=== PATIENT | female | born 1960 ===

== ENCOUNTER 2018-03-22 10:02 | Day surgery (SDC) | payer BC ==
[~2018-03-22 10:02] MED LIST: Buffered Lidocaine 0.9% SYRIN* 5 ML/SYR SYRINGE INTRADERM ONE
[2018-03-22] MEDS ORDERED: fentaNYL* 50 MCG/ML 2 ML VIAL (100 MCG VIAL) ONE ×3 (13:15→14:04)
[2018-03-22] MEDS ORDERED: Midazolam* 1 MG/ML 2 ML VIAL (2 MG) ONE (13:15)
[2018-03-22] MEDS ORDERED: Lidocaine 2% PF * 5 ML VIAL ONE (13:17)
[2018-03-22] MEDS ORDERED: Succinylcholine* 20 MG/ML 10 ML VIAL ONE (13:34)
[2018-03-22] MEDS ORDERED: Dexamethasone IV* 4 MG/ML 1 ML (4 MG) ONE (13:34)
[2018-03-22] MEDS ORDERED: Ondansetron INJ* 2 MG/ML VIAL ONE (13:34)
[2018-03-22] MEDS ORDERED: oxyCODONE/Acetamin 5/325 MG* TAB PO PRN (14:00)
[2018-03-22] MEDS ORDERED: Acetaminophen TAB* 325 MG PO PRN (14:00)
[2018-03-22] MEDS ORDERED: Naloxone* 0.4 MG/ML 1 ML VIAL IV PRN (14:00)
[2018-03-22] MEDS ORDERED: Ondansetron INJ* 2 MG/ML VIAL IV PRN (14:00)
[2018-03-22] MEDS ORDERED: DiMENhydriNATE IV* 50 MG/ML VIAL IV PUSH PRN (14:00)
[2018-03-22] MEDS ORDERED: Labetalol IV* 5 MG/ML 20 ML VIAL IV PUSH ONE (14:01)
[2018-03-22] MEDS ORDERED: hydrALAZINE IV* 20 MG/ML VIAL IV SLOW PU ONE (14:01)
[2018-03-22] MEDS ORDERED: Labetalol IV* 5 MG/ML 20 ML VIAL ONE (14:04)
[2018-03-22] MEDS: fentaNYL* 50 MCG/ML 2 ML VIAL (100 MCG VIAL) IV PRN ×4 (14:06→14:41)
[2018-03-22] MEDS ORDERED: DiMENhydriNATE IV* 50 MG/ML VIAL ONE (14:09)
[2018-03-22] MEDS ORDERED: oxyCODONE ORAL.SOLN* 5 MG/5 ML UDC ONE (14:35)
[2018-03-22] MEDS ORDERED: hydrALAZINE IV* 20 MG/ML VIAL ONE (14:36)
[2018-03-22] MEDS ORDERED: Acetaminophen ADULT LIQ* 650 MG/20.3 ML UDC ONE (15:15)
[2018-03-22 15:43] VITALS: BP 140/93
--- NOTE | 2018-03-23 03:11 | OP ---
DATE OF OPERATION: 03/22/18 - [facility] DATE OF : 60 SURGEON: Rafael Law M.D. PRE-OP DIAGNOSIS: Chronic tonsillitis. POST-OP DIAGNOSIS: Chronic tonsillitis. OPERATIVE PROCEDURE: Tonsillectomy. BRIEF HISTORY: This is a 57-year-old female with chronic tonsillitis with frequent tonsil stones elected for surgical management. DESCRIPTION OF PROCEDURE: The patient was taken to the operating room. General anesthesia was given. The patient was intubated. Tongue, mandible, and soft palate were retracted. Coblator was used to remove tonsils on both sides. Once hemostasis was obtained, the patient was awakened and sent to recovery room in stable condition. Instrument and sponge count correct. Blood loss minimal. [id number]/[facility] #: [id number] MTDD
== END 2018-03-22 16:13 | disposition home or self-care (01) ==
LOC: OR 10:02
PROVIDERS: ATTEND Otolaryngology
DX: J35.01 Chronic tonsillitis (principal); I10 Essential (primary) hypertension
CPT/HCPCS: 88304; A9270-GY; J0330; J0360; J1100; J1240; J2250; J2405; J3010

== ENCOUNTER → 2019-07-18 07:02 | Day surgery (SDC) | payer BC ==
--- NOTE | 2019-07-17 09:51 | HP ---
PREOPERATIVE HISTORY AND PHYSICAL: DATE OF ADMISSION/SURGERY: 07/18/19 DATE OF OFFICE VISIT: 07/10/19 ATTENDING PHYSICIAN: Dr. Cuco Rodas.* (DICTATED BY RYAN ROWE) PROCEDURE: Right knee arthroscopy, partial meniscectomy. CHIEF COMPLAINT: Right knee pain. HISTORY OF PRESENT ILLNESS: Raymond is a 59-year-old female who presents to the clinic for right knee pain. She has a lateral meniscus tear. She has failed conservative measures, therefore agreed to undergo right knee arthroscopy with partial meniscectomy with Dr. Rodas on 07/18/19. PAST MEDICAL HISTORY: Hypertension, adrenal fatigue. PAST SURGICAL HISTORY: Tonsillectomy. The patient denies prior complications with anesthesia. MEDICATIONS: 1. Lisinopril 10 mg 1 by mouth daily. 2. Hydrochlorothiazide 12.5 mg 1 every day. 3. Multivitamin 1 daily. ALLERGIES: No known drug allergy. FAMILY HISTORY: Positive for diabetes, hypertension, and heart disease. The patient denies family history of DVT or PE. SOCIAL HISTORY: She lives alone. She denies tobacco use. She reports occasional alcohol. She is right hand dominant. She does report marijuana use. REVIEW OF SYSTEMS: A 14-point review of systems was reviewed with the patient. Positive for current complaint, otherwise negative. Denies fever, chills, chest pain, shortness of breath, history of bleeding disorder, history of DVT or PE. PHYSICAL EXAMINATION GENERAL: A 59-year-old well-developed, well-nourished female in no acute distress. Alert and oriented x3. Appropriate mood and affect. Appropriate balance and coordination of the lower extremities. VITAL SIGNS: Height 66, weight 217, pulse 87, blood pressure 124/82, temperature 97.9, BMI 35.0. HEENT: Normocephalic, atraumatic. PERRLA. Throat clear. NECK: Supple. PULMONARY: Lungs clear to auscultation bilaterally. No wheezing, rhonchi, or rales. CARDIO: Regular rate and rhythm. S1 and S2. No murmurs, gallops, or rubs. No edema. ABDOMEN: Positive bowel sounds, soft, nontender. NEURO: Alert and oriented x3. Cranial nerves grossly intact. MUSCULOSKELETAL: Right lower extremity: Skin is intact. No warmth or erythema. Range of motion 0 to 130, mild effusion. Positive Alayna. Calf soft, nontender. 1A Alejo. Negative posterior shift. Stable varus and valgus stress. +5/5 strength, ankle dorsiflexion, plantarflex. +2 DP pulses. Sensation is intact to light touch distally. DIAGNOSTIC STUDIES: MRI of the right knee reveals a horizontal longitudinal tear of the anterior horn of the lateral meniscus. IMPRESSION: Right knee lateral meniscus tear. PLAN: The patient is scheduled to undergo right knee arthroscopy with partial meniscectomy with Dr. Rodas on 07/18/19. She will follow up in 10 to 14 days postop for followup and suture removal, and Percocet will be used for postop pain management. RYAN ROWE [id number]/[facility] #: [id number] MTDRudolph
[~2019-07-18 07:02] MED LIST changes: -Buffered Lidocaine 0.9% SYRIN* 5 ML/SYR SYRINGE INTRADERM ONE; +Buffered Lidocaine 1% SYRIN* 1 ML/SYRINGE INTRADERM ONE; +Dexamethasone IV* 4 MG/ML 1 ML (4 MG) IV SLOW PU ONE; +Dexamethasone IV* 4 MG/ML 1 ML (4 MG) ONE; +DiMENhydriNATE IV* 50 MG/ML VIAL IV PUSH PRN; +DiMENhydriNATE IV* 50 MG/ML VIAL ONE; +Famotidine IV* 10 MG/ML 2 ML (20 mg) IV ONE; +Famotidine IV* 10 MG/ML 2 ML (20 mg) ONE; +HYDROcodone/ACETAMIN 5-325 MG* 1 TAB PO PRN; +Lactated Ringers 1000 ML Bag* 1,000 ML IV SCH; +Lidocaine 1% w EPI 1:200,000* SDV 30 ML VIAL ONE; +Lidocaine 2% PF * 5 ML VIAL ONE; +Midazolam* 1 MG/ML 5 ML VIAL (5 MG) ONE; +Naloxone* 0.4 MG/ML 1 ML VIAL IV PRN; +Ondansetron INJ* 2 MG/ML VIAL ONE; +Propofol* 10 MG/ML 20 ML BTL ONE; +Ropivacaine 0.2% * 2 MG/ML VIAL ONE; +ceFAZolin 2 GM in NS PREMIX(*) 2 GM/100 ML BAG IVPB ONE; +fentaNYL* 50 MCG/ML 2 ML VIAL (100 MCG VIAL) ONE; +oxyCODONE/Acetamin 5/325 MG* TAB ONE; +oxyCODONE/Acetamin 5/325 MG* TAB PO PRN
[2019-07-18] MEDS: fentaNYL* 50 MCG/ML 2 ML VIAL (100 MCG VIAL) IV PRN ×2 (10:44→10:52)
[2019-07-18 13:11] VITALS: BP 114/75
--- NOTE | 2019-07-19 00:32 | OP ---
CC: PCP, Tarah Moore MD * DATE OF OPERATION: 07/18/19 - [facility] DATE OF : 60 ATTENDING SURGEON: Cuco Rodas MD. SOUND EQUIPMENT MECHANIC: None available. ANESTHESIOLOGIST: Dr. Xavier. ANESTHESIA: General. PRE-OP DIAGNOSES: Anterior cruciate ligament injury and lateral meniscus tear. POST-OP DIAGNOSES: Anterior cruciate ligament injury and a medial plica as well as medial and lateral meniscal tearing. OPERATIVE PROCEDURE: Right knee arthroscopy with partial medial and partial lateral meniscectomy and plica excision. COMPLICATIONS: None. ESTIMATED BLOOD LOSS: Minimal. INDICATIONS: Raymond Rosenthal is a 59-year-old female who presented with persistent catching and locking mechanical type of symptoms. She has failed conservative treatment. She had an injury in February and she has ACL pain. She has mechanical catching and locking. She has elected to proceed with surgical treatment as she has failed conservative management. Risks and benefits were discussed at length included but not limited to bleeding; infection; damage to nerves, vessels, surrounding structures; wound nonhealing; persistent pain; need for surgery; scarring; stiffness; incomplete relief of symptoms; and risks of anesthesia. DESCRIPTION OF PROCEDURE: The patient was greeted in the preoperative area by the attending surgeon. Correct extremity was marked. Consent was confirmed. The patient was brought back to the operating suite. She was placed in the supine position on the operating table and then underwent general anesthesia with LMA intubation, after which she was properly positioned in the bed. Lateral post was positioned. An unsterile tourniquet was placed high on the proximal thigh. The right leg was then prepped and draped in the usual sterile fashion, beginning with chlorhexidine soap, scrub, and alcohol wipe, and a final prep with ChloraPrep. After appropriate surgical pause indicating site, side, procedure, administration of antibiotics, the knee was intra-articularly injected with 1% lidocaine with epi. The anterolateral portal was then made using an 11 blade. The scope was then positioned into the joint. The anteromedial portal was made in an outside-in fashion. There was abundant synovitis present. There was evidence of an ACL injury, some of this was debrided back and any unstable flaps. The medial compartment was examined. There were grade 0 to 1 changes at the plateau and grade 1 and small area of grade 0 to 1 changes at the medial femoral condyle. There was evidence of an unstable tear of the medial meniscus. This was debrided back using biters and antonio. After this was completed, attention was directed to the lateral meniscus with the knee placed in [id number] position. There was evidence of a tear that was displaced into the joint anteriorly and laterally. The biters and antonio were used to debride this back. There was some fraying at the root which was also debrided back as well. Once the meniscectomy was completed, there was evidence of some grade 2 changes at the tibial plateau, grade 0 to 1 changes at the femur. The knee was placed in full extension. There was evidence of a large plica medially. This was debrided back using biters and antonio. Patellofemoral joint had grade 0 to 1 changes in the trochlea and small area of grade 2 changes in the patellar fragment. Once the partial meniscectomy was completed, the knee was thoroughly lavaged removing any loose debris. The wounds were then copiously irrigated with sterile saline. The portals were closed with 3- 0 nylon in an interrupted fashion. Sterile dressings were applied as well as a Cryo/Cuff. She was awoken from anesthesia and transferred to the PACU in stable condition. POSTOPERATIVE PLAN: She will be weightbearing as tolerated, range of motion as tolerated on crutches. I will see the patient back in 14 days postop. DVT prophylaxis was considered but deferred due to no previous personal or family history. [id number]/[facility] #: [id number] CHRISTINA
== END | disposition home or self-care (01) ==
LOC: OR 07:02
PROVIDERS: ATTEND Orthopaedic Surgery
DX: S83.281A Other tear of lateral meniscus, current injury, right knee, initial encounter (principal); S83.241A Other tear of medial meniscus, current injury, right knee, initial encounter; S83.511A Sprain of anterior cruciate ligament of right knee, initial encounter; M67.51 Plica syndrome, right knee; X58.XXXA Exposure to other specified factors, initial encounter; Y92.9 Unspecified place or not applicable; I10 Essential (primary) hypertension; F41.9 Anxiety disorder, unspecified
CPT/HCPCS: A9270-GY; J0690; J1100; J1240; J2001; J2250; J2405; J2704; J2795; J3010